=== PATIENT | male | born 1945 | race Caucasian/White ===

== ENCOUNTER 2017-08-28 06:19 | Day surgery (SDC) | payer OTHER, MEDICARE ==
[2017-08-25 15:42] VITALS: BMI 36.9
[2017-08-28 11:58] VITALS: TEMP 98.4
[2017-08-28 12:33] VITALS: BP 144/69; PULSE 90
== END 2017-08-28 12:51 | disposition home or self-care (01) ==
LOC: JASU-SURG 06:19
PROVIDERS: ATTEND Orthopaedic Surgery
PROC: 0RBJ4ZZ Excision of Right Shoulder Joint, Percutaneous Endoscopic Approach (ICD-10-PCS; principal; 2017-08-28)
PROC: 0LQ20ZZ Repair Left Shoulder Tendon, Open Approach (ICD-10-PCS; 2017-08-28)
DX: M75.41 Impingement syndrome of right shoulder (principal); M75.101 Unspecified rotator cuff tear or rupture of right shoulder, not specified as traumatic
CPT/HCPCS: 94760

== ENCOUNTER 2019-12-07 08:00 | Inpatient (IN) | payer OTHER, MEDICARE ==
[2019-12-14 13:45] VITALS: BMI 35.4
[2019-12-16] MEDS ORDERED: CEFAZOLIN 2 GM/D5W 2 GM/50 ML ML IVPB ONE (06:34)
[2019-12-16] MEDS ORDERED: GENTAMICIN SO4 80 MG/2 ML VIAL ONE (07:12)
[2019-12-16] MEDS ORDERED: ceFAZolin SODIUM 1 GM VIAL ONE ×2 (07:13→17:12)
[2019-12-16] MEDS ORDERED: THROMBIN (BOVINE) 20,000 UNIT VIAL TP ONE ×2 (07:13→07:24)
[2019-12-16] MEDS ORDERED: DEXAMETHASONE SOD PHOSPHATE 4 MG/1 ML VIAL IVPUSH PRN (07:50)
[2019-12-16] MEDS ORDERED: PROMETHAZINE HCL 25 MG/1 ML VIAL IVPB PRN (07:50)
[2019-12-16] MEDS ORDERED: PROMETHAZINE HCL 25 MG/1 ML VIAL IVPUSH PRN (07:50)
[2019-12-16] MEDS ORDERED: ONDANSETRON 4 MG/2 ML VIAL IVPUSH PRN ×3 (07:50→12:04)
[2019-12-16] MEDS ORDERED: HYDROmorphone *PCA* 10MG/50ML DISP.SYRIN PCA SCH (08:00)
[2019-12-16] MEDS ORDERED: PROPOFOL 20 ML ONE ×2 (08:01)
[2019-12-16] MEDS ORDERED: ROCURONIUM BROMIDE 50 MG/5 ML SYRINGE ONE ×2 (08:01→10:39)
[2019-12-16] MEDS ORDERED: MIDAZOLAM HCL 2 MG/2 ML SINGLE DOSE VIAL ONE (08:01)
--- NOTE | 2019-12-16 08:06 | HP ---
History & Physical Update - History History: No Change - Physical Physical: No Change - Assessment Assessment: No Change - Plan Plan: No Change (H&P is located in patient's paper chart. It is up to date. No new medications or complaints. Will be [facility] into [facility].)
[2019-12-16] MEDS ORDERED: LIDOCAINE HCL/PF 2% SDV 5ML VIAL ONE (08:14)
[2019-12-16] MEDS ORDERED: DEXAMETHASONE SOD PHOSPHATE 4 MG/1 ML VIAL ONE (08:27)
[2019-12-16] MEDS ORDERED: ONDANSETRON 4 MG/2 ML VIAL ONE (08:27)
[2019-12-16] MEDS ORDERED: ceFAZolin 2 GRAM PREMIX BAG IVPB ONE (08:28)
[2019-12-16] MEDS ORDERED: SODIUM CHLORIDE 0.9% P/F 10 ML VIAL IJ ONE (08:28)
[2019-12-16] MEDS ORDERED: VANCOMYCIN 1,000 MG VIAL (RESTRICTED TO ID ONLY) IVPB ONE (08:37)
[2019-12-16] MEDS ORDERED: THROMBIN (BOVINE) 5,000 UNIT VIAL TP ONE (09:02)
[2019-12-16] MEDS ORDERED: LIDOCAINE 1%/EPI 1:100000 (20 ML MULTI DOSE VIAL) IJ ONE (09:02)
[2019-12-16] MEDS ORDERED: GENTAMICIN SO4 80 MG/2 ML VIAL IVPB ONE (09:02)
[2019-12-16] MEDS ORDERED: BACITRACIN 50,000 UNITS VIAL TP ONE (09:02)
[2019-12-16] MEDS ORDERED: HYDROGEN PEROXIDE 473 ML PO ONE (09:02)
[2019-12-16] MEDS ORDERED: ACETAMINOPHEN INJECTION 100 ML IVPB ONE (10:46)
[2019-12-16] MEDS ORDERED: NEOSTIGMINE METHYLSULFATE 0.5 MG/1 ML - 10 ML MDV ONE (10:54)
[2019-12-16] MEDS ORDERED: GLYCOPYRROLATE 0.2 MG/1 ML VIAL ONE (10:54)
[2019-12-16] MEDS ORDERED: METOPROLOL TARTRATE 5 MG/5 ML VIAL ONE (11:36)
[2019-12-16] MEDS ORDERED: HYDROmorphone *PCA* 10MG/50ML DISP.SYRIN ONE (11:50)
[2019-12-16] MEDS ORDERED: diphenhydrAMINE HCL 25 MG CAPSULE (FP) PO PRN (12:04)
[2019-12-16] MEDS ORDERED: oxyCODONE HCL 5 MG TABLET PO PRN ×2 (12:04)
--- NOTE | 2019-12-16 12:14 | OP ---
Operative Note - Note: Operative Date: 12/16/19 Pre-Operative Diagnosis: Cervical Spondylosis Operation: C3-C6 corpectomies with decompression. Reconstruction with Nexxt Cage, anterior plate. Local allograft. Post-Operative Diagnosis: Same as Pre-op Surgeon: Nain Dong Residential Roofer: Tyrone Mayer Anesthesiologist/STABLE CLEANER: Thang Alexander Anesthesia: General Specimens Removed: C3-C6 discs Estimated Blood Loss (mls): 100 Drains & Tubes with Location: GILBERTO Drains, Volume Out (mls): 100 (mancia) Fluid Volume Replaced (mls): 1,000 Operative Report Dictated: Yes
[2019-12-16] MEDS ORDERED: ALBUTEROL SO4 HFA INHALER IH PRN (12:15)
[2019-12-16] MEDS ORDERED: LACTATED RINGERS SOLUTION 1,000 ML/1,000 ML INFUS.BAG IV SCH (12:15)
[2019-12-16] MEDS: DOCUSATE SODIUM 100 MG CAPSULE (FP) PO SCH ×2 (14:34→21:52)
--- NOTE | 2019-12-16 14:50 | EKG ---
Test Reason : Blood Pressure : / mmHG Vent. Rate : 065 BPM Atrial Rate : 065 BPM P-R Int : 186 ms QRS Dur : 094 ms QT Int : 426 ms P-R-T Axes : 036 021 049 degrees QTc Int : 443 ms NORMAL SINUS RHYTHM NORMAL ECG WHEN COMPARED WITH ECG OF 21-AUG-2017 16:21, NO SIGNIFICANT CHANGE WAS FOUND Confirmed by ALEC SHAW MD ([id number]) on 12/16/2019 2:50:07 PM Referred By: Nain oDng Confirmed By:ALEC SHAW MD
[2019-12-16] MEDS: LACTATED RINGERS SOLUTION 1,000 ML IV SCH ×2 (15:00→21:58)
[2019-12-16] MEDS: HEPARIN NA (PORCINE) 5,000 UNITS/ML 1ML VIAL SQ SCH ×2 (16:37→21:52)
[2019-12-16] MEDS ORDERED: DEXTROSE 5%-WATER - 50 ML IVPB ONE (17:12)
[2019-12-16] MEDS: CEFAZOLIN 1 GM in DEXTROSE 5%-WATER - 50 ML IVPB SCH (17:20)
--- NOTE | 2019-12-16 18:39 | PN ---
Progress Note (short form) - Note Progress Note: >>>>>>>>>>>>>>> MEDICAL NOTE <<<<<<<<<<<<<<<<<< Active Medications Albuterol Sulfate (Ventolin Hfa Inhaler -) 1 puff IH Q4H PRN PRN Reason: SHORTNESS OF BREATH Amlodipine Besylate (Norvasc -) 5 mg PO DAILY [facility] Atorvastatin Calcium (Lipitor -) 10 mg PO HS [facility] Budesonide/Formoterol Fumarate (Symbicort 160/4.5mcg -) 2 puff IH BID [facility] Dexamethasone Sodium Phosphate (Decadron Injection -) 4 mg IVPUSH ONCE PRN PRN Reason: NAUSEA AND/OR VOMITING Diphenhydramine HCl (Benadryl Injection -) 12.5 mg IVPUSH ONCE PRN PRN Reason: FOR ITCHING Diphenhydramine HCl (Benadryl -) 25 mg PO Q6H PRN PRN Reason: FOR ITCHING Docusate Sodium (Colace -) 100 mg PO TID [facility] Last Admin: 12/16/19 14:34 Dose: Not Given Documented by: Ferrous Sulfate (Feosol -) 325 mg PO DAILY [facility] Folic Acid (Folic Acid -) 1 mg PO DAILY [facility] Heparin Sodium (Porcine) (Heparin -) 5,000 unit SQ TID [facility] Last Admin: 12/16/19 16:37 Dose: 5,000 unit Documented by: Hydrochlorothiazide (Hctz -) 12.5 mg PO DAILY [facility] Hydromorphone HCl (Hydromorphone 10 Mg/50 Ml-Ns) 10 mg CLOTH WINDING SUPERVISOR CLOTH WINDING SUPERVISOR [facility]; Protocol Stop: 12/23/19 07:50 Last Admin: 12/16/19 12:30 Dose: 10 mg Documented by: Lactated Ringer's (Lactated Ringers Solution) 1,000 mls @ 125 mls/hr IV ASDIR [facility] Last Admin: 12/16/19 15:00 Dose: 400 mls Documented by: Cefazolin Sodium 1 gm/ (Dextrose) 50 mls @ 100 mls/hr IVPB Q8H-IV [facility] Stop: 12/17/19 17:59 Last Admin: 12/16/19 17:20 Dose: 100 mls/hr Documented by: Metoprolol Succinate (Toprol Xl -) 25 mg PO DAILY [facility] Ondansetron HCl (Zofran Injection) 4 mg IVPUSH Q4H PRN PRN Reason: NAUSEA AND/OR VOMITING Oxycodone HCl (Roxicodone -) 5 mg PO Q4H PRN PRN Reason: PAIN LEVEL 1-5 Oxycodone HCl (Roxicodone -) 10 mg PO Q4H PRN PRN Reason: PAIN LEVEL 6-10 Pantoprazole Sodium (Protonix -) 40 mg PO DAILY [facility] Promethazine HCl (Phenergan Injection -) 12.5 mg IVPB Q6H PRN PRN Reason: NAUSEA AND/OR VOMITING Laboratory Results - last 24 hr 12/16/19 06:13 Blood Type B POSITIVE Antibody Screen Negative Vital Signs Temperature 98.5 F 12/16/19 18:00 Pulse Rate 84 12/16/19 18:00 Respiratory Rate 20 12/16/19 18:00 Blood Pressure 138/59 L 12/16/19 18:00 O2 Sat by Pulse Oximetry (%) 9 L 12/16/19 18:00 CC: neck discomfort `````````````````````` eyes--midline heart--RR lungs--unlabored neuro--groggy; responsive & coherent; moves all extrem on command `````````````````````````````````````````` > s/p c3 to 6 corpectomy as described with cage--mgmnt as per NS > HTN--on Hctz; BB & CCB; VSS as of now > COPD--stable; on PRN albuterol > Hx of OA--axial spine > CLL-check CBC > GERD--on PPI ``````````````````````` Dr Woodall
[2019-12-16] MEDS ORDERED: ATORVASTATIN CA 10 MG TABLET (FP) PO SCH (22:00)
[2019-12-16] MEDS ORDERED: PT OWN MED DRAWER 7, Y5N ONE (22:00)
[2019-12-16] MEDS: BUDESONIDE/FORMETEROL FUMARATE 160/4.5 mcg INHALER IH SCH (22:56)
[2019-12-17] MEDS ORDERED: ceFAZolin SODIUM 1 GM VIAL ONE ×2 (02:37→09:26)
[2019-12-17] MEDS ORDERED: DEXTROSE 5%-WATER - 50 ML IVPB ONE ×2 (02:37→09:26)
[2019-12-17] MEDS: CEFAZOLIN 1 GM in DEXTROSE 5%-WATER - 50 ML IVPB SCH ×2 (02:40→09:28)
[2019-12-17 06:21] VITALS: TEMP 97.7
[2019-12-17] MEDS: HEPARIN NA (PORCINE) 5,000 UNITS/ML 1ML VIAL SQ SCH (06:34)
[2019-12-17] MEDS: DOCUSATE SODIUM 100 MG CAPSULE (FP) PO SCH (06:35)
--- NOTE | 2019-12-17 08:30 | PN ---
Progress Note (short form) - Note Progress Note: NEUROSURGERY POD #1 s/p C3-C6 corpectomies with decompression. Reconstruction with Nexxt Cage, anterior plate. Local allograft. No acute events since surgery per RN notes. Sitting in chair at bedside. Wearing C-collar as instructed. C/o mild incisional tenderness and mild dysphagia (expected). Not using his SOLE LAYER by choice. States his RUE arm numbness has completely resolved. Hasn't ambulated yet. Russo remains in place. Denies n/v/f/c, CP, palpitations, SOB or BENSON. Last Vital Signs Temp Pulse Resp BP Pulse Ox 97.7 F 73 20 133/48 L 93 L 12/17/19 06:00 12/17/19 06:00 12/17/19 06:00 12/17/19 06:00 12/17/19 06:00 GEN: alert. nad Neck: Surgical dressing c/d/i. GILBERTO serosang (minimal). No hematoma Motor: Moving UE bilat. Strength 5/5 : Russo to gravity (clear) LE: SCDs bilat. Soft. NT. Negative swelling/edema Problem List - Problems (1) Cervical spondylosis Assessment/Plan: POD #1 GILBERTO dc'd Russo dc'd; begin trial of void SOLE LAYER dc'd PO pain management as ordered PT Advance to soft diet Patient wants to go home today. Cleared from neurosurgery. f/u w/ Dr. Dong as outlined in DISCHARGE PLAN. On behalf of Dr. Dong, thank you for the opportunity to participate in your patient's care. Code(s): M47.812 - SPONDYLOSIS W/O MYELOPATHY OR RADICULOPATHY, CERVICAL REGION
[2019-12-17 08:33] LABS: HEMATOCRIT 37.7 % (35.4-49); HEMOGLOBIN 12.4 GM/dL (11.7-16.9); MCHC 32.9 g/dl (32.0-35.9); MEAN CELL VOLUME 94.4 fl (80-96); MEAN PLT VOLUME 9.7 fl (7.5-11.1); PLATELET COUNT 147 K/MM3 (134-434); RBC 3.99 M/mm3 (4.00-5.60); RDW 15.2 % (11.9-15.9)
[2019-12-17] MEDS ORDERED: BENZOCAINE/MENTH/CETYLPYRD CL 1 EACH LOZENGE MM PRN (08:37)
[2019-12-17 08:50] LABS: BLOOD UREA NITROGEN 21.8 mg/dL (7-18); CALCIUM 8.5 mg/dL (8.5-10.1); CREATININE 1.2 mg/dL (0.55-1.3)
--- NOTE | 2019-12-17 08:58 | PN ---
Progress Note (short form) - Note Progress Note: ANESTHESIA S: C/o sore throat. Used EGG CASER last night and this morning intermittently. Reports little analgesia, dizziness with EGG CASER usage. Anticipates D/C today. O: Vital Signs Temp 97.7 F 12/17/19 06:00 Pulse 73 12/17/19 06:00 Resp 20 12/17/19 06:00 BP 133/48 L 12/17/19 06:00 Pulse Ox 93 L 12/17/19 06:00 Intake & Output 12/16/19 12/16/19 12/17/19 11:59 23:59 11:59 Intake Total 1600 900 750 Output Total 125 630 45 Balance 1475 270 705 Intake: IV 1600 900 750 Lactated Ringers Solution 500 750 1,000 ml @ 125 mls/hr IV ASDIR [facility] Rx#: [id number] Output: Drainage 30 45 Posterior Neck 45 Urine 100 600 Estimated Blood Loss 25 Other: Voiding Method Indwelling Catheter # Unmeasured Voids Void 600 Bowel Movement No No sitting up in chair, NAD, collar in place RRR, CTA B A/P: Tolerating diet, anticipating D/C today, on PO meds. - D/C EGG CASER - Discharge analgesics per primary service
[2019-12-17] MEDS ORDERED: PT OWN MED DRAWER 7, Y5N ONE (09:07)
[2019-12-17] MEDS: BUDESONIDE/FORMETEROL FUMARATE 160/4.5 mcg INHALER IH SCH (09:23)
[2019-12-17] MEDS ORDERED: FERROUS SO4 325 MG TABLET (FP) PO SCH (10:00)
[2019-12-17] MEDS ORDERED: amLODIPine BESYLATE 5 MG TABLET (FP) PO SCH (10:00)
[2019-12-17] MEDS ORDERED: FOLIC ACID 1 MG TABLET (FP) PO SCH (10:00)
[2019-12-17] MEDS ORDERED: PANTOPRAZOLE 40 MG TABLET PO SCH (10:00)
[2019-12-17] MEDS ORDERED: metoPROLOL SUCCINATE 25 MG TAB.SR.24H (FP) PO SCH (10:00)
[2019-12-17] MEDS ORDERED: HYDROCHLOROTHIAZIDE 12.5 MG CAPSULE (FP) PO SCH (10:00)
--- NOTE | 2019-12-17 12:22 | DS ---
"Physical Examination Vital Signs: Vital Signs Temperature 97.7 F 12/17/19 06:00 Pulse Rate 73 12/17/19 06:00 Respiratory Rate 20 12/17/19 06:00 Blood Pressure 133/48 L 12/17/19 06:00 O2 Sat by Pulse Oximetry (%) 93 L 12/17/19 06:00 Findings/Remarks: Test Constitutional: Yes: Well Nourished, No Distress, Calm Eyes: Yes: Conjunctiva Clear HENT: Yes: WNL, Other Neck: Yes: Other (dresing at midline; clean) Cardiovascular: Yes: Regular Rate and Rhythm Respiratory: Yes: WNL, Other (no wheezing or stridor) Gastrointestinal: Yes: Normal Bowel Sounds ...Rectal Exam: Yes: Deferred Extremities: Yes: WNL Edema: No Neurological: Yes: WNL, Alert ...Motor Strength: WNL Psychiatric: Yes: WNL Labs: CBC, BMP 12/17/19 07:10 12/17/19 07:10 Discharge Summary Problems reviewed: Yes Reason For Visit: CERVICAL SPONDYLOSIS Current Active Problems Cervical spondylosis (Acute) HTN CLL pre DM obesity OA spine COPD GERD Lipidemia Hx of colon ca (local ) Procedures: Principal: cerv spine surgery Other Procedures: no Hospital Course: unremarkable post OP course; able to stand & walk; remains coherent. Health Concerns: follow up with [facility] & PCP Plan of Treatment: as per NS Condition: Stable - Instructions Diet, Activity, Other Instructions: Post Operative Instructions Physical Activity Resume your normal everyday activity as tolerated. No heavy lifting or exercise until seen by your surgeon. You may walk unlimited amounts and climb stairs. You may resume driving the car when you feel safe and comfortable behind the wheel and you are no longer wearing your brace. Do not operate a vehicle while taking narcotic medication. Brace If you had neck surgery, wear surgical collar 23 hr/day. Remove to shower only. Wound Care Keep your incision clean, dry and covered at all times. Apply an occlusive dressing (Saran wrap or Tegaderm) when showering to avoid getting your incision wet. Do not submerge incision or apply ointments or creams. The karthikeyan will be removed in the office in 10-14 days post-op. Diet There are no dietary restrictions. Eat healthy, high-fiber foods. Drink 6-8 glasses of liquid each day. This will assist in keeping your bowels regular. Pain Management You may take Tylenol or acetaminophen. Any pain prescription medication ordered should be taken as prescribed for moderate to severe pain. Avoid any ibuprofen (Motrin, Advil, Aleve, Toradol, etc) for 3 months unless otherwise discussed with your surgeon. Call Dr Blue for any of the following: Severe pain not relieved by medication Fever of 101 or higher Excessive bleeding or drainage on dressing Inability to urinate Any chest pain or shortness of breath, seek Emergency Care. Call the office to confirm a post-operative appointment for 2-3 weeks post-op Nain Dong MD [facility] [place] [address] iSTOP The Drug Utilization Report below displays all of the controlled substance prescriptions, if any, that your patient has filled in the last twelve months. The information displayed on this report is compiled from pharmacy submissions to the Department, and accurately reflects the information as submitted by the pharmacies. This report was requested by: Tyrone Mayer | Reference #: [id number] Referrals: Ashish Su MD [Staff Physician] - Disposition: HOME - Home Medications Comprehensive Discharge Medication List: Ambulatory Orders Albuterol Sulfate [Proair Hfa] 8.5 gm IH PRN 08/25/17 Amlodipine Besylate 5 mg PO DAILY 08/25/17 Atorvastatin Ca [Lipitor] 10 mg PO HS 08/25/17 Budesonide/Formeterol Fumarate [SYMBICORT 160/4.5mcg -] 2 inh PO HS 08/25/17 Hydrochlorothiazide [Hctz -] 12.5 mg PO DAILY 08/25/17 Metoprolol Succinate [Toprol Xl] 25 mg PO DAILY 08/25/17 Pantoprazole Sodium [Protonix] 40 mg PO DAILY 08/25/17 Docusate Sodium [Colace -] 100 mg PO TID #21 capsule 12/17/19 oxyCODONE HCL [Roxicodone -] 5 mg PO Q6H PRN #20 tablet MDD 4 12/17/19 Prescription Drug Monitoring Program (I-STOP) results: I-STOP not reviewed (done by DR Mayer)"
[2019-12-17] MEDS ORDERED: PCA PUMP NR ONE (12:29)
[2019-12-17 13:18] VITALS: BP 112/51; PULSE 68
--- NOTE | 2019-12-21 11:36 | SURG ---
Surgery [employer] Note [employer] Coach: Tyrone Mayer PA-C Date of Service: 12/16/19 Diagnosis: Cervical Spondylotic Myelopathy Procedure: 1. Interbody Cage (Corpectomy 2. C3 Caudal hemicorpectomy with resection of osteophytes and posterior longitudinal ligament (technically challenging) 3. C4 Corpectomy with resection of osteophytes and posterior longitudinal ligament (technically challenging) 4. C5 Corpectomy with resection of osteophytes and posterior longitudinal ligament 5. C6 Rostral hemicorpectomy with resection of osteophytes and posterior longitudinal ligament 6. Anterior Instrumentation 7. Fluroscopy 8. Microdissection 9. C3/4 Arthrodesis 10. C4/5 Arthrodesis 11. C5/6 Arthodesis 12. Local Autograft 13. Deformity correction (mormonism of lordosis) I was present for the entirety of the operative procedure. For further detail, please refer to operative report. Visit type - Case Type Case Type: Scheduled - New patient This patient is new to me today: Yes Date on this admission: 12/21/19
== END 2019-12-17 15:16 | disposition home or self-care (01) | DRG 472 ==
LOC: J2C 12-16 04:12 → J8W 12-16 15:43
PROVIDERS: ADMIT Internal Medicine Hematology & Oncology; ATTEND Internal Medicine Hematology & Oncology
PROC: 0RB30ZZ Excision of Cervical Vertebral Disc, Open Approach (ICD-10-PCS; 2019-12-16)
PROC: 01N10ZZ Release Cervical Nerve, Open Approach (ICD-10-PCS; 2019-12-16)
PROC: B01BZZZ Fluoroscopy of Spinal Cord (ICD-10-PCS; 2019-12-16)
PROC: 4A11X4G Monitoring of Peripheral Nervous Electrical Activity, Intraoperative, External Approach (ICD-10-PCS; 2019-12-16)
PROC: 0RG20A0 Fusion of 2 or more Cervical Vertebral Joints with Interbody Fusion Device, Anterior Approach, Anterior Column, Open Approach (ICD-10-PCS; principal; 2019-12-16 08:00)
DX: M47.12 Other spondylosis with myelopathy, cervical region (principal); C91.10 Chronic lymphocytic leukemia of B-cell type not having achieved remission; M40.50 Lordosis, unspecified, site unspecified; J44.9 Chronic obstructive pulmonary disease, unspecified; I10 Essential (primary) hypertension; E78.5 Hyperlipidemia, unspecified; R73.03 Prediabetes; E66.9 Obesity, unspecified; Z68.35 Body mass index [BMI] 35.0-35.9, adult; Z85.038 Personal history of other malignant neoplasm of large intestine
CPT/HCPCS: 36415; 72125-TC; 76000-TC-FY; 80048; 85027; 86850; 86900; 86901; 93005; 93010; 94760; 97116-GP; 97161-GP; J0131; J1644

== ENCOUNTER 2021-05-21 11:17 | Inpatient (IN) | payer OTHER, MEDICARE ==
[2021-05-21] MEDS ORDERED: ACETAMINOPHEN 325 MG TABLET (FP) PO ONE (11:37)
[2021-05-21] MEDS ORDERED: ACETAMINOPHEN 325 MG TABLET (FP) ONE (12:24)
[2021-05-21 12:49] LABS: ALBUMIN 3.6 g/dl (3.4-5.0); CALCIUM 8.5 mg/dl (8.5-10); CREATININE 1.2 mg/dl (0.55-1.3); TOT PROT 6.8 g/dl (6.4-8.2)
[2021-05-21 12:51] LABS: ACTIVATED PTT 27.4 SECONDS (25.2-36.5)
[2021-05-21 12:55] LABS: INR 1.35 (0.83-1.09)
[2021-05-21 13:44] LABS: HEMATOCRIT 36.6 % (35.4-49); HEMOGLOBIN 12.3 GM/dL (11.7-16.9); MCHC 33.7 g/dl (32.0-35.9); MEAN PLT VOLUME 9.7 fl (7.5-11.1); PLATELET COUNT 145 10^3/uL (134-434); RBC 3.85 M/mm3 (4.00-5.60); RDW 14.6 % (11.9-15.9); WHITE BLOOD COUNT 16.5 K/mm3 (4.0-10.0)
[2021-05-21 13:53] LABS: VENOUS BASE EXCESS -0.4 mmol/L (-2-2); VENOUS O2 SATURATION 69.7 % (70-80); VENOUS PCO2 40.2 mmHg (38-52); VENOUS PH 7.4 (7.310-7.410)
[2021-05-21 14:35] LABS: N-TERMINAL BNP 187.6 pg/ml (5-125)
[2021-05-21] MEDS ORDERED: DEXAMETHASONE SOD PHOSPHATE 4 MG/1 ML VIAL IVPUSH ONE (15:08)
[2021-05-21] MEDS ORDERED: DEXAMETHASONE SOD PHOSPHATE 4 MG/1 ML VIAL ONE (15:13)
[2021-05-21] MEDS ORDERED: ALBUTEROL SO4 HFA INHALER IH PRN (15:39)
[2021-05-21] MEDS ORDERED: ACETAMINOPHEN 1000 MG/100 ML BAG IVPB PRN (15:39)
[2021-05-21 16:03] LABS: ANISOCYTOSIS 2+; MACROCYTOSIS 0; PLATELET ESTIMATE DECREASED
[2021-05-22 04:22] VITALS: BMI 36.0
[2021-05-22] MEDS: BUDESONIDE/FORMETEROL FUMARATE 160/4.5 mcg INHALER IH SCH ×3 (04:22→20:59)
[2021-05-22] MEDS: PANTOPRAZOLE 40 MG TABLET PO SCH (10:01)
[2021-05-22] MEDS: metoPROLOL SUCCINATE 25 MG TAB.SR.24H (FP) PO SCH (10:01)
[2021-05-22] MEDS: HYDROCHLOROTHIAZIDE 12.5 MG CAPSULE (FP) PO SCH (10:01)
[2021-05-22] MEDS: amLODIPine BESYLATE 5 MG TABLET (FP) PO SCH (10:01)
[2021-05-22] MEDS: DEXAMETHASONE SOD PHOSPHATE 10 MG/1 ML VIAL IVPUSH SCH (10:02)
[2021-05-22] MEDS: ENOXAPARIN NA (PORCINE) 40 MG/0.4 ML DISP.SYRIN SQ SCH (10:02)
[2021-05-22] MEDS: ALBUTEROL SO4 HFA INHALER IH SCH ×3 (12:56→20:54)
[2021-05-22] MEDS ORDERED: ATORVASTATIN CA 10 MG TABLET (FP) PO SCH (22:00)
[2021-05-23] MEDS: ALBUTEROL SO4 HFA INHALER IH SCH ×3 (08:14→16:00)
[2021-05-23 09:49] LABS: HEMATOCRIT 38.2 % (35.4-49); HEMOGLOBIN 12.1 GM/dL (11.7-16.9); MCH 30.7 pg (25.7-33.7); MCHC 31.7 g/dl (32.0-35.9); MEAN CELL VOLUME 96.7 fl (80-96); MEAN PLT VOLUME 9.7 fl (7.5-11.1); PLATELET COUNT 190 10^3/uL (134-434); RBC 3.95 M/mm3 (4.00-5.60); RDW 14.5 % (11.9-15.9); WHITE BLOOD COUNT 21.2 K/mm3 (4.0-10.0)
[2021-05-23] MEDS: amLODIPine BESYLATE 5 MG TABLET (FP) PO SCH (09:50)
[2021-05-23] MEDS: PANTOPRAZOLE 40 MG TABLET PO SCH (09:50)
[2021-05-23] MEDS: HYDROCHLOROTHIAZIDE 12.5 MG CAPSULE (FP) PO SCH (09:50)
[2021-05-23] MEDS: DEXAMETHASONE SOD PHOSPHATE 10 MG/1 ML VIAL IVPUSH SCH (09:51)
[2021-05-23] MEDS: metoPROLOL SUCCINATE 25 MG TAB.SR.24H (FP) PO SCH (09:51)
[2021-05-23] MEDS: BUDESONIDE/FORMETEROL FUMARATE 160/4.5 mcg INHALER IH SCH (09:51)
[2021-05-23] MEDS: ENOXAPARIN NA (PORCINE) 40 MG/0.4 ML DISP.SYRIN SQ SCH (09:52)
[2021-05-23 10:05] LABS: CALCIUM 8.7 mg/dL (8.5-10.1)
[2021-05-23 10:06] LABS: ALBUMIN 3.4 g/dl (3.4-5.0)
[2021-05-23 10:09] LABS: CREATININE 1.1 mg/dL (0.55-1.3)
[2021-05-23 10:11] LABS: BILIRUBIN,TOTAL 0.6 mg/dL (0.2-1); TOT PROT 6.7 g/dl (6.4-8.2)
[2021-05-23 12:47] LABS: ANISOCYTOSIS 0; HELMET CELLS 0; HOWELL-JOLLY BODIES 0; MACROCYTOSIS 0; OVALOCYTE 0; PLATELET ESTIMATE NORMAL; ROULEAU 0; SICKELED CELLS 0; TARGET CELLS 0; TEAR DROP CELLS 0; TOXIC GRANULATION 0
[2021-05-23 16:16] VITALS: BP 134/61; PULSE 71; TEMP 98.1
== END 2021-05-23 17:09 | disposition home or self-care (01) | DRG 177 ==
LOC: FER 11:17 → J8W 05-22 02:30
PROVIDERS: ADMIT Internal Medicine; ATTEND Internal Medicine Hematology & Oncology
DX: U07.1 COVID-19 (principal); J12.82 Pneumonia due to coronavirus disease 2019; C91.10 Chronic lymphocytic leukemia of B-cell type not having achieved remission; R09.02 Hypoxemia; K21.9 Gastro-esophageal reflux disease without esophagitis; E78.5 Hyperlipidemia, unspecified; I10 Essential (primary) hypertension; E66.9 Obesity, unspecified; Z68.36 Body mass index [BMI] 36.0-36.9, adult
CPT/HCPCS: 36415; 71045-TC-FY; 71275-TC; 80053; 81003; 81015; 82728; 82803; 83605; 83615; 83880; 84484; 85025; 85379; 85610; 85730; 86140; 87086; 87804; 93005; 94761; 99285-25; C9803-CS; J1100; Q9967; U0003; U0005

== ENCOUNTER 2024-01-01 04:41 | Day surgery (SDC) | payer OTHER, MEDICARE ==
[2023-12-26 11:37] VITALS: BMI 38.6
[2024-01-01 10:08] VITALS: RESP 18; TEMP 98.6
[2024-01-01 10:46] VITALS: BP 135/61; PULSE 56
== END 2024-01-01 10:59 | disposition home or self-care (01) ==
LOC: JASU-ENDO 04:41
PROVIDERS: ATTEND Internal Medicine Gastroenterology
PROC: 0DJ08ZZ Inspection of Upper Intestinal Tract, Via Natural or Artificial Opening Endoscopic (ICD-10-PCS; principal; 2024-01-01 09:00)
DX: Z13.810 Encounter for screening for upper gastrointestinal disorder (principal)